=== PATIENT | female | born 1950 | race Caucasian/White ===

== ENCOUNTER 2017-05-29 21:00 | Inpatient (IN) | payer OTHER ==
[2017-05-29] MEDS ORDERED: NA CHLORIDE 0.9% 1,000 ML ONE (21:57)
[2017-05-29 22:10] LABS: Absolute Lymphocytes (CBC) 1.1 K/uL (0.7-4.9); Absolute Neutrophil 8.6 K/uL (1.8-8.0); Basophils % 0.3 % (0-1.3); Eosinophils % 0.4 % (0-4.4); Hematocrit 40.7 % (36.0-45.0); MCH 29.3 pg (27.0-35.0); MCV 87.7 fL (80-100); MPV 7.8 fL (7.6-11.3); Monocytes % 9.7 % (3.3-12.3); RBC Red Blood Cell Count 4.64 M/uL (3.86-4.86)
[2017-05-29 22:13] LABS: Urine Blood 1+ (NEG); Urine Glucose NEGATIVE (NEG); Urine Protein NEGATIVE (NEG)
[2017-05-29 22:21] LABS: Bicarbonate 27 mEq/L (21-31); Glucose Level 137 mg/dL (65-120); Lipase 18 U/L (22-51); Potassium 3.7 mEq/L (3.6-5.0); Sodium Level 135 mEq/L (135-145)
[2017-05-29 22:27] LABS: Urine Bacteria <20 /HPF (<20); Urine Culture Reflex Order NOT NEEDED; Urine RBC <5 /HPF (NONE SEEN)
[2017-05-29 22:27] LABS: ALT/SGPT 21 IU/L (10-60); AST/SGOT 18 IU/L (10-42); Albumin 4.3 g/dL (3.2-5.5); Alkaline Phosphatase 56 IU/L (42-121); Amylase Level 50 U/L (28-100); BUN Blood Urea Nitrogen 14 mg/dL (6-20); Bilirubin Direct 0.1 mg/dL (0-0.2); Bilirubin Total 0.7 mg/dL (0.3-1.2); Protein, Total 7.7 g/dL (6.0-8.3)
[2017-05-30] MEDS ORDERED: Levofloxacin500mg IV 500 MG/100 ML BAG IV ONE (00:44)
[2017-05-30] MEDS ORDERED: METRONIDAZOLE 500mg IVPB 500 MG/100 ML BAG IV ONE (00:44)
--- NOTE | 2017-05-30 00:51 | EDPHYS ---
Physician Documentation [facility] Name: Luz Valentin Age: 67 yrs Sex: Female : 1950 Arrival Date: 05/29/2017 Time: 21:02 Bed 5 Private MD: ED Physician Homero Grullon HPI: 05/29 22:36 This 67 yrs old Female presents to ER via Ambulatory with complaints of snw Abdominal Pain. 22:36 The patient presents with abdominal pain in the left lower quadrant. Onset: The snw symptoms/episode began/occurred suddenly, 2 day(s) ago. The symptoms do not radiate. Associated signs and symptoms: Pertinent positives: anorexia, mild chills. The symptoms are described as crampy, waxing/waning. Modifying factors: The symptoms are alleviated by nothing, the symptoms are aggravated by pressure. Severity of pain: At its worst the pain was moderate severe. The patient has experienced a previous episode. The patient has not recently seen a physician. Historical: - Allergies: 21:30 No Known Allergies; bb - Home Meds: 21:30 losartan 50 mg oral tab 1 tab once daily [Active]; bb - PMHx: 21:30 Hypertension; bb - PSHx: 21:30 Left leg surgery; rhinoplasty; bb - Immunization history:: Adult Immunizations unknown, Pneumococcal vaccine is not up to date, Flu vaccine is not up to date. - Social history:: Smoking status: Patient/guardian denies using tobacco, Patient uses alcohol, occasionally. Patient/guardian denies using street drugs. ROS: 22:36 Constitutional: Negative for fever, chills, and weight loss, Eyes: Negative for injury, snw pain, redness, and discharge, ENT: Negative for injury, pain, and discharge, Neck: Negative for injury, pain, and swelling, Cardiovascular: Negative for chest pain, palpitations, and edema, Respiratory: Negative for shortness of breath, cough, wheezing, and pleuritic chest pain, Back: Negative for injury and pain, : Negative for injury, bleeding, discharge, and swelling, MS/Extremity: Negative for injury and deformity, Skin: Negative for injury, rash, and discoloration, Neuro: Negative for headache, weakness, numbness, tingling, and seizure. 22:36 Abdomen/GI: Positive for abdominal pain. Exam: 22:31 Constitutional: This is a well developed, well nourished patient who is awake, alert, snw and in no acute distress. Head/Face: Normocephalic, atraumatic. Eyes: Pupils equal round and reactive to light, extra-ocular motions intact. Lids and lashes normal. Conjunctiva and sclera are non-icteric and not injected. Cornea within normal limits. Periorbital areas with no swelling, redness, or edema. ENT: Nares patent. No nasal discharge, no septal abnormalities noted. Tympanic membranes are normal and external auditory canals are clear. Oropharynx with no redness, swelling, or masses, exudates, or evidence of obstruction, uvula midline. Mucous membranes moist. Neck: Trachea midline, no thyromegaly or masses palpated, and no cervical lymphadenopathy. Supple, full range of motion without nuchal rigidity, or vertebral point tenderness. No Meningismus. Chest/axilla: Normal chest wall appearance and motion. Nontender with no deformity. No lesions are appreciated. Cardiovascular: Regular rate and rhythm with a normal S1 and S2. No gallops, murmurs, or rubs. Normal PMI, no JVD. No pulse deficits. Respiratory: Lungs have equal breath sounds bilaterally, clear to auscultation and percussion. No rales, rhonchi or wheezes noted. No increased work of breathing, no retractions or nasal flaring. Back: No spinal tenderness. No costovertebral tenderness. Full range of motion. Skin: Warm, dry with normal turgor. Normal color with no rashes, no lesions, and no evidence of cellulitis. MS/ Extremity: Pulses equal, no cyanosis. Neurovascular intact. Full, normal range of motion. Neuro: Awake and alert, GCS 15, oriented to person, place, time, and situation. Cranial nerves II-XII grossly intact. Motor strength 5/5 in all extremities. Sensory grossly intact. Cerebellar exam normal. Normal gait. 22:31 Abdomen/GI: Inspection: abdomen appears normal, Bowel sounds: diminished, Palpation: severe abdominal tenderness, in the left lower quadrant. Vital Signs: 21:30 BP 183 / 77; Pulse 115; Resp 20 S; Temp 99.4(O); Pulse Ox 98% on R/A; Weight 97.52 kg bb (R); Height 5 ft. 6 in. (167.64 cm) (R); Pain 8/10; 22:57 BP 144 / 72; Pulse 96; Resp 17 S; Pulse Ox 95% on R/A; Pain 0/10; jd3 05/30 01:08 BP 143 / 69; Pulse 100; Resp 20; Temp 98.5; Pulse Ox 96% on R/A; Pain 3/10; ak1 02:06 BP 156 / 75; Pulse 101; Resp 18 S; Pulse Ox 95% on R/A; Pain 0/10; jd3 05/29 21:30 Body Mass Index 34.70 (97.52 kg, 167.64 cm) bb MDM: 05/29 21:34 Patient medically screened. snw 21:50 Patient medically screened. [facility] 23:23 Data reviewed: vital signs, nurses notes. Data interpreted: Pulse oximetry: on room air snw is 95 %. Interpretation: acceptable. Counseling: I had a detailed discussion with the patient and/or guardian regarding: the presence of at least one elevated blood pressure reading (>120/80) during this emergency department visit, lab results. ED course: declines pain medication at this time. 23:56 ED course: to CT via wc. snw 05/30 00:46 Physician consultation: Gamaliel Dobson MD was called at 00:46, was contacted at 00:46, snw regarding patient's condition, per Dr. Madrid. 00:52 Physician consultation: Viraj Rosa MD was called at 00:53, was contacted at 00:53, snw regarding admission, to the medical/surgical unit. 05/29 21:41 Order name: Amylase, Serum; Complete Time: 22:27 snw 05/29 21:41 Order name: Basic Metabolic Panel; Complete Time: 22:27 snw 05/29 21:41 Order name: CBC with Diff; Complete Time: 22:14 snw 05/29 21:41 Order name: Creatinine for Radiology; Complete Time: 22:24 snw 05/29 21:41 Order name: Hepatic Function; Complete Time: 22:27 snw 05/29 21:41 Order name: Lipase; Complete Time: 22:27 snw 05/29 21:41 Order name: Urine Microscopic Only; Complete Time: 22:30 snw 05/29 21:41 Order name: Urine Culture snw 05/29 21:41 Order name: Blood Culture Adult (2) snw 05/29 22:02 Order name: Urine Dipstick--Ancillary (enter results); Complete Time: 22:14 rg2 05/29 22:10 Order name: CT Abd/Pelvis - W/Contrast snw 05/29 21:41 Order name: IV Saline Lock; Complete Time: 21:55 snw 05/29 21:41 Order name: Labs collected and sent; Complete Time: 21:55 snw 05/29 21:41 Order name: Urine Dipstick-Ancillary (obtain specimen); Complete Time: 22:01 snw 05/30 00:35 Order name: NPO; Complete Time: 00:42 snw 05/30 01:36 Order name: CONS Physician Consult EDMS Administered Medications: 05/29 22:01 Drug: NS 0.9% 1000 ml Route: IV; Rate: 125 ml/hr; Site: right antecubital; jd3 05/30 02:12 Follow up: IV Status: Infusion continued upon admission ak1 00:54 Drug: Flagyl 500 mg Volume: 100 ml; Route: IVPB; Rate: 200 ml/hr; Infused Over: 30 jd3 mins; Site: right antecubital; 01:23 Follow up: Response: No adverse reaction; IV Status: Completed infusion jd3 00:54 Drug: LevaQUIN 500 mg Volume: 100 ml; Route: IVPB; Infused Over: 60 mins; Site: right jd3 antecubital; 02:12 Follow up: IV Status: Completed infusion ak1 Disposition: 06:46 Co-signature as Attending Physician, Homero Grullon MD I agree with the assessment and deyanira plan of care. Disposition: 05/30/17 00:50 Hospitalization ordered by Viraj Rosa for Inpatient Admission. Preliminary diagnosis are Abdominal tenderness, Diverticulitis of large intestine with perforation and abscess without bleeding. - Bed requested for Telemetry/MedSurg (Inpatient). - Status is Inpatient Admission. ak1 - Condition is Stable. - Problem is new. - Symptoms are unchanged. UTI on Admission? No Signatures: Dispatcher [employer] EDDE Homero Grullon MD MD cha Therrien, Shelly, TECHNICAL ASST-C TECHNICAL ASST-Csnw Melida Patel RN RN Deloris Aguirre RN RN akAshley Diallo, RN RN cg Phillip Juarez, RN RN jd3
--- NOTE | 2017-05-30 00:51 | ER ---
Nurse's Notes [facility] Name: Luz Valentin Age: 67 yrs Sex: Female : 1950 Arrival Date: 05/29/2017 Time: 21:02 Bed 5 Private MD: Diagnosis: Abdominal tenderness;Diverticulitis of large intestine with perforation and abscess without bleeding Presentation: 05/29 21:27 Presenting complaint: Patient states: she started having LLQ pain yesterday pain is bb intermittent and is an 8 at the worst pt denies urinary symptoms or vomiting does have nausea when pain is at the worst, pt thinks she has a cystic ovary. Transition of care: patient was not received from another setting of care. Onset of symptoms was May 28, 2017. Care prior to arrival: None. 21:27 Method Of Arrival: Ambulatory bb 21:27 Acuity: CAMMIE 3 bb Historical: - Allergies: 21:30 No Known Allergies; bb - Home Meds: 21:30 losartan 50 mg oral tab 1 tab once daily [Active]; bb - PMHx: 21:30 Hypertension; bb - PSHx: 21:30 Left leg surgery; rhinoplasty; bb - Immunization history:: Adult Immunizations unknown, Pneumococcal vaccine is not up to date, Flu vaccine is not up to date. - Social history:: Smoking status: Patient/guardian denies using tobacco, Patient uses alcohol, occasionally. Patient/guardian denies using street drugs. Screenin:01 Abuse screen: Denies threats or abuse. Denies injuries from another. Nutritional ak1 screening: No deficits noted. Tuberculosis screening: No symptoms or risk factors identified. Fall Risk None identified. Assessment: 22:01 General: Appears in no apparent distress. Behavior is calm, cooperative. Pain: ak1 Complains of pain in left lower quadrant. Neuro: No deficits noted. Cardiovascular: No deficits noted. Respiratory: No deficits noted. GI: Abdomen is round Bowel sounds present X 4 quads. Abd is soft X 4 quads Abdomen is tender to palpation in left lower quadrant Reports lower abdominal pain, pain to left lower abd relieved with ambulation and movement. pt stated pain is increased with lying still. : No signs and/or symptoms were reported regarding the genitourinary system. EENT: No signs and/or symptoms were reported regarding the EENT system. Derm: No signs and/or symptoms reported regarding the dermatologic system. Musculoskeletal: No signs and/or symptoms reported regarding the musculoskeletal system. 22:25 Reassessment: CT notified of pt finishing PO contrast. jd3 22:57 Reassessment: Patient appears in no apparent distress at this time. Patient and/or jd3 family updated on plan of care and expected duration. Pain level reassessed. Patient is alert, oriented x 3, equal unlabored respirations, skin warm/dry/pink. Patient denies pain at this time. 05/30 01:06 Reassessment: Patient appears in no apparent distress at this time. Patient and/or ak1 family updated on plan of care and expected duration. Pain level reassessed. Patient is alert, oriented x 3, equal unlabored respirations, skin warm/dry/pink. pt and family informed of need for admission. Patient denies pain at this time. 02:06 Reassessment: Patient appears in no apparent distress at this time. Patient and/or jd3 family updated on plan of care and expected duration. Pain level reassessed. Patient is alert, oriented x 3, equal unlabored respirations, skin warm/dry/pink. Patient denies pain at this time. 02:10 Reassessment: Report called to Preeti Girard RN. ak1 Vital Signs: 05/29 21:30 BP 183 / 77; Pulse 115; Resp 20 S; Temp 99.4(O); Pulse Ox 98% on R/A; Weight 97.52 kg bb (R); Height 5 ft. 6 in. (167.64 cm) (R); Pain 8/10; 22:57 BP 144 / 72; Pulse 96; Resp 17 S; Pulse Ox 95% on R/A; Pain 0/10; jd3 05/30 01:08 BP 143 / 69; Pulse 100; Resp 20; Temp 98.5; Pulse Ox 96% on R/A; Pain 3/10; ak1 02:06 BP 156 / 75; Pulse 101; Resp 18 S; Pulse Ox 95% on R/A; Pain 0/10; jd3 05/29 21:30 Body Mass Index 34.70 (97.52 kg, 167.64 cm) bb ED Course: 05/29 21:02 Patient arrived in ED. ds1 21:30 Triage completed. bb 21:30 Arm band placed on Patient placed in an exam room, on a stretcher, on pulse oximetry. bb 21:34 Kath[facility] Archer F[facility]-C [facility]. snw 21:34 Homero Grullon MD is Attending Physician. snw 21:42 Deloris Blakely, RN is Primary Nurse. ak1 21:56 Inserted saline lock: 20 gauge in right antecubital area, using aseptic technique. jd3 Blood collected. placed by Deloris BYRD. 22:01 Patient has correct armband on for positive identification. Placed in gown. Bed in low ak1 position. Call light in reach. Side rails up X 1. Pulse ox on. NIBP on. 22:27 Oral contrast given. vm2 23:49 CT completed. Patient moved to CT via wheelchair. Patient moved back from CT. cw1 23:52 CT Abd/Pelvis - W/Contrast In Process Unspecified. EDMS 05/30 00:47 Viraj Rosa MD is Hospitalizing Provider. snw 01:05 No provider procedures requiring assistance completed. Patient admitted, IV remains in ak1 place. Administered Medications: 05/29 22:01 Drug: NS 0.9% 1000 ml Route: IV; Rate: 125 ml/hr; Site: right antecubital; jd3 05/30 02:12 Follow up: IV Status: Infusion continued upon admission ak1 00:54 Drug: Flagyl 500 mg Volume: 100 ml; Route: IVPB; Rate: 200 ml/hr; Infused Over: 30 jd3 mins; Site: right antecubital; 01:23 Follow up: Response: No adverse reaction; IV Status: Completed infusion jd3 00:54 Drug: LevaQUIN 500 mg Volume: 100 ml; Route: IVPB; Infused Over: 60 mins; Site: right jd3 antecubital; 02:12 Follow up: IV Status: Completed infusion ak1 Outcome: 00:50 Decision to Hospitalize by Provider. snw 01:07 Admitted to Med/surg accompanied by tech, via wheelchair, room 204, with chart. ak1 01:07 Condition: stable 01:07 Instructed on the need for admit. 02:13 Patient left the ED. ak1 Signatures: Dispatcher [employer] EDUT Kathia Archer FNP-C GROOVING MACHINE OPERATOR-Nery Martinez ds1 Melida Patel RN RN Kirstie Mathews cw1 Deloris Blakely, RN RN ak1 Sondra Jackson 2 Phillip Juarez, RN RN jd3
[2017-05-30] MEDS ORDERED: ONDANSETRON 4 MG/2 ML VIAL IV PRN (01:36)
[2017-05-30] MEDS ORDERED: MORPHINE 4 MG/ML SYR IV PRN (01:36)
[2017-05-30] MEDS ORDERED: Levofloxacin500mg IV 500 MG/100 ML BAG IV SCH (02:00)
[2017-05-30] MEDS: NA CHLORIDE 0.9% 1,000 ML IV SCH ×3 (02:00→08:27)
[2017-05-30 02:29] VITALS: O2SAT 95
[2017-05-30 02:38] VITALS: BMI 35.1
[2017-05-30] MEDS: METRONIDAZOLE 500mg IVPB 500 MG/100 ML BAG IV SCH ×2 (05:25→11:01)
--- NOTE | 2017-05-30 08:19 | RAD REPORT ---
EXAM DESCRIPTION: CTAbdomen Pelvis W Contrast - 05/30/2017 5:24 am CLINICAL HISTORY: Abdominal pain. COMPARISON: None. TECHNIQUE: Biphasic CT imaging of the abdomen and pelvis was performed with 100 ml non-ionic IV cont rast. All CT scans are performed using dose optimization technique as appropriate and may include automated exposure control or mA/KV adjustment according to patient size. FINDINGS: The inferior lung bhardwaj are emphysematous with 2 mm nodule in right lung base.A small hia otto hernia is present. The liver demonstrates no focal mass or intrahepatic biliary dilatation. Mild fatty liver is noted. T he spleen, pancreas and adrenal glands are normal. Left adrenal nodule is present measuring 13 mm. Ki dneys are normal in size with no hydronephrosis or focal mass present. No bowel obstruction, free air, free fluid or abscess. 5 cm length of the sigmoid colon in the left l ower quadrant demonstrates moderate wall thickening and pericolonic inflammatory changes. Several div erticula are present in this region. The findings are compatible with moderate acute diverticulitis. No peridiverticular abscess seen. The appendix is normal. No evidence of significant lymphadenopathy . No suspicious bony findings. IMPRESSION: Moderate acute diverticulitis involving the left lower quadrant sigmoid colon. No peridi verticular abscess. Consider a followup colonoscopy after appropriate therapy to exclude underlying inflammatory mass.
[2017-05-30 08:50] VITALS: TEMP 99
[2017-05-30 12:37] VITALS: BP 128/60
--- NOTE | 2017-05-30 13:10 | P.SSS ---
Patient History Date of Service: 05/30/17 Reason for admission: ABDOMEN PAIN History of Present Illness: MS. ACKERMAN HAS BEEN EATING LOT OF BERRIES AND CAME WITH ABDOMEN PAIN. SHE HAS ACUTE DIVERTICULITIS BUT NOW IS FEELING GOOD AND TOTALLY PAINFREE. Allergies No Known Allergies Allergy (Verified 05/30/17 01:14) Home Medications: Ciprofloxacin HCl [Cipro 250 MG Tablet*] 250 mg PO BID #20 tab 05/30/17 Losartan/Hydrochlorothiazide [Losartan-Hctz 50-12.5 mg Tab] 1 tab PO DAILY 05/30 Metronidazole [Flagyl] 500 mg PO Q8H #30 tablet 05/30/17 - Past Medical/Surgical History Has patient received pneumonia vaccine in the past: No Diabetic: No -: hypertension -: hysterectomy -: rhinoplasty -: left leg surgery - Family History Mother Notes: brain aneurysm Father -: Heart disease - Social History Smoking Status: Never smoker Alcohol use: Yes CD- Drugs: No Caffeine use: Yes Place of Residence: Home Review of Systems 10-point ROS is otherwise unremarkable Gastrointestinal: Abdominal Pain Physical Examination - Vital Signs Temperature: 99.0 F Blood Pressure: 128/60 Pulse: 98 Respirations: 16 Pulse Ox (%): 98 - Physical Exam General: Alert, In no apparent distress HEENT: Atraumatic, PERRLA, Mucous membr. moist/pink, EOMI, Sclerae nonicteric Neck: Supple, 2+ carotid pulse no bruit, No LAD, Without JVD or thyroid abnormality Respiratory: Clear to auscultation bilaterally, Normal air movement Cardiovascular: Regular rate/rhythm, Normal S1 S2 Gastrointestinal: Normal bowel sounds, No tenderness Musculoskeletal: No tenderness Integumentary: No rashes Neurological: Normal gait, Normal speech, Normal strength at 5/5 x4 extr, Normal tone, Normal affect Lymphatics: No axilla or inguinal lymphadenopathy - Studies Laboratory Data (last 24 hrs) 05/29/17 21:52: Creatinine 0.62 05/29/17 21:52: WBC 10.8, Hgb 13.6, Hct 40.7, Plt Count 217 05/29/17 21:52: Sodium 135, Potassium 3.7, BUN 14, Creatinine 0.65, Glucose 137 H, Total Bilirubin 0.7, AST 18, ALT 21, Alkaline Phosphatase 56, Amylase 50, Lipase 18 L - Diagnosis (Problem(s)) (1) Acute diverticulitis Current Visit: Yes Status: Acute Plan: STABLE PAINFREE WILL FU OUTPATIENT SHE NEVER HAD COLONOSCOPY SHE NEEDS TO DO IT. WILL GIVE ORDER AT FU VISIT. - Disposition Disposition: ROUTINE DISCHARGE Condition: FAIR
--- NOTE | 2017-05-30 15:32 | CON ---
Date of Consultation: 05/30/2017 Brief History Of Present Illness: The patient is a 67-year-old, female, who presents to ER with complaints of abdominal pain in the left lower quadrant beginning approximately 2 days ago. She states that she has not had similar pain before. The pain got significant over the course of evening. However, she tried to go to sleep and woke up on Sunday morning with the same said pain , but she was able to sleep the night before. The pain got progressively worse over the course of day and as such, around 8 p.m. she decided to come to the emergency room with that same said dull, achy-type pain in the left lower quadrant with occasional sharp stabbing component. She states that during her admission to the ER, she felt significantly better, however, and only had tenderness left. No pain in the area. She had no nausea, vomiting. No change in bowel or bladder habits. She norm ally has 2 bowel movements per day. She has never had a colonoscopy before. Past Medical History: Significant for hypertension. Past Surgical History: She has had a left leg surgery, rhinoplasty, and a transvaginal hysterectomy. She still has a left ovary in place. Allergies: NO KNOWN ALLERGIES. Medications: At home include losartan. Social History: She denies smoking, alcohol, recreational drug use 10 point. Review of Systems: A 10-point review of systems other than HPI, denies. Physical Examination: Vital Signs: At the time examination, her BMI is 35.1. Temperature 99.0, blood pressure is 134/76, heart rate is 103, respiratory rate 18. Pain level was 0 during my examination. General: She is awake, alert, oriented. Psychiatric: She is appropriate, conversive. HEENT: Normocephalic. Sclerae anicteric. Mucous membranes moist. Oropharynx clear. Neck: Supple. No JVD. Chest: Normal expansion and excursion. Cardiovascular: Slight tachycardia, otherwise regular. Abdomen: Soft with mild left lower quadrant tenderness to palpation. No rebound. No guarding. No focal peritonitis. Very minimally tender during the examination and only to deep palpation. Extremities: No clubbing, cyanosis, edema. Skin: Warm and dry. Laboratory Data: White blood cell count of 10.8, hemoglobin is 13.6, hematocrit of 40.7, platelet co unt is 217, neutrophils 79.6%. Her sodium 135, potassium 3.7, chloride 101, carbon dioxide 27, BUN 1 4, creatinine 0.6, glucose is 137, calcium 9.4, total bilirubin 0.7, direct component 0.1, AST 18, AL T 21, alkaline phosphatase 56. Her lipase is 18. Her UA showed 10-20 white blood cells and 10-20 sq uamous cells. She had a CT scan performed of the abdomen and pelvis as well which was officially david d as moderate acute diverticulitis involving the left lower quadrant, sigmoid colon. No peridivertic ular abscess, no bowel obstruction, free air, free fluid or abscess, 5 cm length of sigmoid colon. T he left lower quadrant demonstrates moderate wall thickening and pericolic inflammatory changes. Sev eral diverticula present in this area. This is compatible with moderate acute diverticulitis. Assessment And Plan: This is a 67-year-old female who presents with acute non perforated diverticuli tis. 1.IV fluid hydration. 2.Antibiotic coverage with Levaquin, Flagyl. 3.Serial examinations. 4.Start patient on p.o. diet and advance as tolerated to a low residue diet. 5.The patient will require colonoscopy as an outpatient. I have explained the risks, benefits, alternatives of the above stated plan. The patient agrees to proceed as indicated. HUEY Voice ID: [id number] Report ID: [id number]
== END 2017-05-30 14:52 | disposition home or self-care (01) | DRG 392 ==
LOC: ER 21:00 → ERHOLD 05-30 01:34 → 2ND 05-30 01:39
PROVIDERS: ADMIT Internal Medicine; ATTEND Internal Medicine
DX: K57.32 Diverticulitis of large intestine without perforation or abscess without bleeding (principal)
CPT/HCPCS: 36415; 74177; 80048; 80076; 81003; 81015; 82150; 83690; 85025; 87040; 87086; 87088; 96361; 96365; 96368; 99285; J7030; Q9967

== ENCOUNTER 2019-06-24 10:23 | Emergency (ER) | payer OTHER ==
[2019-06-24] MEDS ORDERED: OXYMETAZOLINE HCL 0.05% 15ML NAS ONE (11:48)
[2019-06-24] MEDS ORDERED: LIDOCAINE VISCOUS 2% SOLN 15 ML UDC ONE (12:37)
--- NOTE | 2019-06-24 12:59 | EDPHYS ---
Physician Documentation [facility] Name: Luz Valentin Age: 69 yrs Sex: Female : 1950 Arrival Date: 06/24/2019 Time: 10:26 Bed 15 Private MD: Viraj Rosa V ED Physician Prakash Jay HPI: 06/23 12:52 This 69 yrs old Female presents to ER via Ambulatory with complaints of Nose ps1 Bleed. 12:52 Patient has been taking ASA therapy for COVID precautions because she heard that it can ps1 cause strokes. Now has anterior epistaxis of right nare. Onset yesterday. Intermittent and now constant this morning. Hx of nosebleeds in past. No lightheadedness. . Historical: - Allergies: 10:47 No Known Allergies; hb - Home Meds: 10:47 losartan 50 mg Oral tab 1 tab once daily [Active]; Aspirin Oral [Active]; hb - PMHx: 10:47 Hypertension; hb - PSHx: 10:47 Left leg surgery; rhinoplasty; hb - Immunization history:: Adult Immunizations up to date. - Social history:: Smoking status: Patient denies any tobacco usage or history of. ROS: 12:52 Constitutional: Negative for fever, chills, and weight loss, Eyes: Negative for injury, ps1 pain, redness, and discharge, Cardiovascular: Negative for chest pain, palpitations, and edema, Respiratory: Negative for shortness of breath, cough, wheezing, and pleuritic chest pain, Abdomen/GI: Negative for abdominal pain, nausea, vomiting, diarrhea, and constipation, MS/Extremity: Negative for injury and deformity, Skin: Negative for injury, rash, and discoloration, Neuro: Negative for headache, weakness, numbness, tingling, and seizure. 12:52 ENT: Positive for nose bleed. Exam: 12:52 Constitutional: This is a well developed, well nourished patient who is awake, alert, ps1 and in no acute distress. Head/Face: Normocephalic, atraumatic. Eyes: Pupils equal round and reactive to light, extra-ocular motions intact. Lids and lashes normal. Conjunctiva and sclera are non-icteric and not injected. Cardiovascular: Regular rate and rhythm. No gallops, murmurs, or rubs. Normal PMI, no JVD. No pulse deficits. Respiratory: Lungs have equal breath sounds bilaterally, clear to auscultation and percussion. No rales, rhonchi or wheezes noted. No increased work of breathing, no retractions or nasal flaring. Abdomen/GI: Soft, non-tender, with normal bowel sounds. No distension or tympany. No guarding or rebound. No evidence of tenderness throughout. Skin: Warm, dry with normal turgor. Normal color with no rashes, no lesions, and no evidence of cellulitis. MS/ Extremity: Pulses equal, no cyanosis. Neurovascular intact. Full, normal range of motion. Neuro: Awake and alert, GCS 15, oriented to person, place, time, and situation. Cranial nerves II-XII grossly intact. Sensory grossly intact. 12:52 ENT: External ear(s): are unremarkable, Nose: Nasal septum: and is seen on the right, epistaxis, anterior. Vital Signs: 10:44 BP 183 / 88; Pulse 92; Resp 16; Temp 98.2; Pulse Ox 100% on R/A; Pain 0/10; hb Procedures: 12:57 Epistaxis treatment: A moderate amount of bleeding noted from Treated using ps1 Oxymetazoline sprays, nasal clamp, rhino rocket. MDM: 12:57 Data reviewed: vital signs, nurses notes, and as a result, I will discharge patient. ps1 Counseling: I had a detailed discussion with the patient and/or guardian regarding: the historical points, exam findings, and any diagnostic results supporting the discharge/admit diagnosis, the need for outpatient follow up, an ENT specialist, to return to the emergency department if symptoms worsen or persist or if there are any questions or concerns that arise at home. 12:58 Patient medically screened. ps1 Administered Medications: 11:50 Drug: Afrin Drops (0.05 %) 1 sprays Route: Intranasal; Site: right nare; ph Disposition: 06/24/19 12:58 Discharged to Home. Impression: Right anterior epistaxis. - Condition is Stable. - Discharge Instructions: Nosebleed, Adult. - Medication Reconciliation Form, Thank You Letter, Antibiotic Education, Prescription Opioid Use form. - Follow up: Sejal Márquez MD; When: 48 Hours; Reason: Further diagnostic work-up, Recheck today's complaints, Continuance of care, Re-evaluation by your physician. Follow up: Emergency Department; When: As needed; Reason: Trouble breathing, Worsening of condition. - Problem is new. - Symptoms have improved. Signatures: Val Delgado, RN RN Yohana Gates RN RN Prakash Jay MD MD [facility] Ananya Yen RN RN Corrections: (The following items were deleted from the chart) 13:31 12:58 06/24/2019 12:58 Discharged to Home. Impression: Right anterior epistaxis. Condition is Stable. Forms are Medication Reconciliation Form, Thank You Letter, Antibiotic Education, Prescription Opioid Use. Follow up: Sejal Márquez; When: 48 Hours; Reason: Further diagnostic work-up, Recheck today's complaints, Continuance of care, Re-evaluation by your physician. Follow up: Emergency Department; When: As needed; Reason: Trouble breathing, Worsening of condition. Problem is new. Symptoms have improved. ps1
--- NOTE | 2019-06-24 12:59 | ER ---
Nurse's Notes [facility] Name: Luz Valentin Age: 69 yrs Sex: Female : 1950 Arrival Date: 06/24/2019 Time: 10:26 Bed 15 Private MD: Viraj Rosa V Diagnosis: Right anterior epistaxis Presentation: 06/23 10:44 Chief complaint: Intermittent bleeding from right nare x 3 hours today. Denies injury. hb Hx of frequent nose bleeds. Bleedign controlled at this time. Coronavirus screen: Proceed with normal triage. Ebola Screen: No symptoms or risks identified at this time. Initial Sepsis Screen: Does the patient meet any 2 criteria? No. Patient's initial sepsis screen is negative. Does the patient have a suspected source of infection? No. Patient's initial sepsis screen is negative. Risk Assessment: Do you want to hurt yourself or someone else? Patient reports no desire to harm self or others. Onset of symptoms was June 24, 2019. 10:44 Method Of Arrival: Ambulatory hb 10:44 Acuity: CAMMIE 4 hb Historical: - Allergies: 10:47 No Known Allergies; hb - Home Meds: 10:47 losartan 50 mg Oral tab 1 tab once daily [Active]; Aspirin Oral [Active]; hb - PMHx: 10:47 Hypertension; hb - PSHx: 10:47 Left leg surgery; rhinoplasty; hb - Immunization history:: Adult Immunizations up to date. - Social history:: Smoking status: Patient denies any tobacco usage or history of. Screenin:54 Abuse screen: Denies threats or abuse. Abuse screen:. Nutritional screening: No ah deficits noted. Tuberculosis screening: No symptoms or risk factors identified. Fall Risk None identified. Assessment: 11:35 General: Appears in no apparent distress. Behavior is calm, cooperative. Pain: Denies pain. Neuro: Level of Consciousness is awake, alert, Oriented to person, place, time, situation. Cardiovascular: Heart tones S1 S2 present. Respiratory: Airway is patent Respiratory effort is even, unlabored, Respiratory pattern is regular, symmetrical. GI: No signs and/or symptoms were reported involving the gastrointestinal system. : No signs and/or symptoms were reported regarding the genitourinary system. EENT: Nares with bleeding noted Denies nasal congestion, nasal discharge, difficulty swallowing. Derm: No signs and/or symptoms reported regarding the dermatologic system. Musculoskeletal: No signs and/or symptoms reported regarding the musculoskeletal system. 12:05 Reassessment: Dr Jay at bedside to administer Afrin to R nare, nasal clamps placed, ph pt resting comfortably. Vital Signs: 10:44 BP 183 / 88; Pulse 92; Resp 16; Temp 98.2; Pulse Ox 100% on R/A; Pain 0/10; hb ED Course: 10:26 Patient arrived in ED. am2 10:26 Viraj Rosa MD is Private Physician. am2 10:46 Triage completed. hb 10:47 Arm band placed on. hb 11:22 Ananya Yen, RN is Primary Nurse. 11:25 Prakash Jay MD is Attending Physician. ps1 11:54 Patient has correct armband on for positive identification. 12:30 Assist provider with nosebleed control using Afrin sprays, nasal clamp, rhino rocket ah placed for extensive packing needs, Bleeding from right nares. Set up for procedure. Performed by Prakash Jay MD Bleeding stopped. Patient tolerated well. 12:58 Sejal Márquez MD is Referral Physician. [facility] 13:00 Patient did not have IV access during this emergency room visit. Administered Medications: 11:50 Drug: Afrin Drops (0.05 %) 1 sprays Route: Intranasal; Site: right nare; ph Outcome: 12:58 Discharge ordered by . ps1 13:00 Discharged to home ambulatory. 13:00 Condition: good 13:00 Discharge instructions given to patient, Instructed on discharge instructions, follow up and referral plans. Demonstrated understanding of instructions, follow-up care. 13:31 Patient left the ED. Signatures: Val Delgado RN RN Yohana Gates RN RN Renuka Sheffield am2 Prakash Jay MD MD ps1 Ananya Yen RN RN
[2019-06-24 13:57] VITALS: BP 183/88; TEMP 98.2; O2SAT 100
== END 2019-06-24 13:31 | disposition home or self-care (01) ==
LOC: ER 10:23
DX: R04.0 Epistaxis (principal); I10 Essential (primary) hypertension
CPT/HCPCS: 30901; 99283